=== PATIENT | male | born 1985 | race African-American/Black ===

== ENCOUNTER 2017-03-14 10:38 | Emergency (ER) | payer OTHER ==
[~2017-03-14] VITALS: Ht 182.9 cm; Wt 86.4 kg
[~2017-03-14 10:38] MED LIST: AMOXICILLIN 50500 MG PO; BIAXIN 500MG T500 MG PO; CARAFATE 1GM1 G PO; FLEXERIL 1010 MG/TAB PO; NO HOME MEDICATIONS; NORCO 325 MG-51 TAB; NORCO 325 MG-51 TAB PO; NORCO 325 MG-7.1 TAB PO; PEN-VEE K500 MG PO; ULTRAM 50MG TAB50 MG PO; ZOFRAN 4MG T4 MG/TAB PO
[2017-03-14 10:41] VITALS: BP 167/97; PULSE 66; TEMP 98.1
[2017-03-14] MEDS ORDERED: AMOXICILLIN 50500 MG PO (11:02)
[2017-03-14] MEDS ORDERED: ULTRAM 50MG TAB50 MG PO (11:02)
== END 2017-03-14 11:05 | disposition home or self-care (01) ==
LOC: COL.ER 10:38
DX: K08.89 Other specified disorders of teeth and supporting structures (principal); F17.210 Nicotine dependence, cigarettes, uncomplicated

== ENCOUNTER 2017-06-20 08:07 | Emergency (ER) | payer OTHER ==
[~2017-06-20] VITALS: Ht 182.9 cm; Wt 90.0 kg
[2017-06-20 08:14] VITALS: BP 163/103; PULSE 80; TEMP 97.9
[2017-06-20] MEDS ORDERED: ULTRAM 50MG TAB50 MG PO (08:57)
== END 2017-06-20 10:15 | disposition home or self-care (01) ==
LOC: COL.ER 08:07
DX: J02.8 Acute pharyngitis due to other specified organisms (principal); B97.89 Other viral agents as the cause of diseases classified elsewhere; H92.01 Otalgia, right ear; R06.02 Shortness of breath

== ENCOUNTER 2017-11-27 20:33 | Emergency (ER) | payer SELFPAY ==
[~2017-11-27] VITALS: Ht 182.9 cm; Wt 86.4 kg
[2017-11-27 20:43] VITALS: TEMP 99
[2017-11-27 21:38] LABS: BASO # 0.1 (0.0-0.2); BASO % 0.8 % (0.0-2.0); EOS # 0.1 (0.0-0.7); EOS % 0.8 % (0-4.0); GRAN # 6.4 (1.4-6.5); GRAN % 60.1 % (42.2-75.2); HEMATOCRIT 47.5 % (42.0-52.0); HEMOGLOBIN 16.1 g/dl (13.5-18.0); LYMPH # 3.3 (1.2-3.4); LYMPH % 31.1 % (20.0-51.0); MEAN CELL VOLUME 87 fl (80.0-100.0); MEAN CORPUSCULAR HEMOGLOBIN 29 pg (27.0-31.0); MEAN CORPUSCULAR HGB CONC 34 g/dl (33.0-37.0); MEAN PLATELET VOLUME 9.4 fl (7.4-10.4); MONO # 0.7 (0.1-0.6); MONO % 6.9 % (1.7-9.3); PLATELET COUNT 364 K/mm3 (130-400); RED BLOOD COUNT 5.47 M/mm3 (4.20-5.60); REDCELL DISTRIBUTION WIDTH-CV 12.1 % (11.5-14.5)
[2017-11-27 21:48] LABS: ALBUMIN 5.2 gm/dL (3.5-5.0); BILIRUBIN,TOTAL 0.5 mg/dL (0.0-1.0); CALCIUM 10.3 mg/dL (8.4-10.2); CREATININE, serum 1.36 mg/dL (0.66-1.25); POTASSIUM 4.3 mmol/L (3.4-5.0); TOTAL PROTEIN 8.4 gm/dL (6.4-8.2)
[2017-11-27 22:07] LABS: COLLECTION METHOD CLEAN CATCH
[2017-11-27 22:16] LABS: AMORPHOUS CRYSTAL Present /uL; MUCOUS Present /lpf; PH 8 (5-8); SQUAMOUS EPITHELIAL None Seen /hpf; URINE APPEARANCE Cloudy; URINE BACTERIA Rare /hpf; URINE BILIRUBIN Negative (NEGATIVE); URINE BLOOD Negative (NEGATIVE); URINE COLOR Yellow; URINE GLUCOSE Negative (NEGATIVE); URINE KETONE Negative (NEGATIVE); URINE LEUKOCYTE ESTERASE Negative (NEGATIVE); URINE NITRATE Negative (NEGATIVE); URINE PROTEIN(semi-quant) 1+ (NEGATIVE); URINE UROBILINOGEN Negative (NEGATIVE)
[2017-11-27 22:19] LABS: TRICYCLIC ANTIDEPRESS URINE NEGATIVE
[2017-11-27] MEDS ORDERED: PHENERGAN 25 TA25 MG PO (22:42)
[2017-11-27 23:00] VITALS: BP 124/74; PULSE 86
== END 2017-11-27 23:03 | disposition home or self-care (01) ==
LOC: COL.ER 20:33
PROVIDERS: Physician Assistant
DX: R19.7 Diarrhea, unspecified (principal); R10.13 Epigastric pain; R10.32 Left lower quadrant pain; Z87.891 Personal history of nicotine dependence
CPT/HCPCS: J2270; J2405; J7030